=== PATIENT | male | born 1950 | race Caucasian/White ===

== ENCOUNTER 2017-02-03 10:20 | Emergency (ER) | payer MEDICARE, OTHER ==
[~2017-02-03] VITALS: Ht 165.1 cm; Wt 60.4 kg
--- NOTE | 2017-02-03 10:35 | NUR ---
dr [email or web address] at the bedside for eval and exam.
[2017-02-03] MEDS ORDERED: BUPR-96 PO (10:44)
[2017-02-03] MEDS ORDERED: LEVO175T7 PO (10:44)
[2017-02-03] MEDS ORDERED: ABILIFY PO (10:45)
--- NOTE | 2017-02-03 11:03 | NUR ---
Patient discharged to home in stable conditon. Written and verbal after care instructions given. Patient verbalizes understanding of instructions.
[2017-02-03 11:04] VITALS: BP 139/80
== END 2017-02-03 11:04 | disposition home or self-care (01) ==
LOC: ER 10:20
DX: K74.60 Unspecified cirrhosis of liver (principal); R16.0 Hepatomegaly, not elsewhere classified; F17.200 Nicotine dependence, unspecified, uncomplicated; F31.9 Bipolar disorder, unspecified; Z86.19 Personal history of other infectious and parasitic diseases
CPT/HCPCS: A4663

== ENCOUNTER 2018-02-20 13:43 | Emergency (ER) | payer MEDICARE, OTHER ==
[~2018-02-20] VITALS: Ht 157.5 cm; Wt 63.5 kg
[~2018-02-20 13:43] MED LIST: ABILIFY PO; BUPR-96 PO; LEVO175T7 PO
[2018-02-20] MEDS ORDERED: NAPROXEN 500 MG PO (13:53)
--- NOTE | 2018-02-20 14:20 | NUR ---
Patient discharged to home in stable conditon. Written and verbal after care instructions given to patient. Patient verbalizes understanding of instructions. Patient left ER with steady gait.
== END 2018-02-20 14:22 | disposition home or self-care (01) ==
LOC: ER 13:43
DX: M25.522 Pain in left elbow (principal); F17.210 Nicotine dependence, cigarettes, uncomplicated; Z79.1 Long term (current) use of non-steroidal anti-inflammatories (NSAID); Z79.899 Other long term (current) drug therapy
CPT/HCPCS: A4663